=== PATIENT | male | born 1995 | race Two or more races ===

== ENCOUNTER 2017-01-22 23:22 | Emergency (ER) | payer SELFPAY ==
--- NOTE | 2017-01-22 23:30 | NUR ---
CALLED PT IN [place], NO REPONSE
--- NOTE | 2017-01-22 23:51 | NUR ---
CALLED PT IN [place], NO REPONSE
--- NOTE | 2017-01-23 00:01 | NUR ---
CALLED PT IN [place], NO REPONSE
--- NOTE | 2017-01-23 00:27 | NUR ---
CALLED PT IN [place], NO REPONSE
== END 2017-01-23 00:28 | disposition left against medical advice (07) ==
LOC: ER 23:27
DX: Z53.21 Procedure and treatment not carried out due to patient leaving prior to being seen by health care provider (principal)